=== PATIENT | male | born 1990 | race Caucasian/White ===

== ENCOUNTER 2017-06-06 04:31 | Emergency (ER) | payer SELFPAY ==
[~2017-06-06] VITALS: Ht 190.5 cm; Wt 72.6 kg
[2017-06-06] MEDS ORDERED: KETOROLAC 30 MG/ML VIAL IM ONE (05:30)
--- NOTE | 2017-06-06 05:32 | ED Upper Extremity ---
General Chief Complaint: Upper Extremity Stated Complaint: RT SHOULDER HURTS & STS CAN'T MOVE IT Nursing Triage Note: PT TO ED 10 W/ C/O RT SHOULDER PAIN ONSET THIS AM. REPORTS HE'S UNABLE TO MOVE HIS ARM AT THIS TIME. Nursing Sepsis Screen: No Definite Risk Source: patient Exam Limitations: intoxication History of Present Illness Date Seen by Provider: Jun 06, 2017 Time Seen by Provider: 05:20 Initial Comments Patient presents to the ER by private conveyance with a chief complaint that last night he had done quite a bit of drinking to the point of passing out and may have fell out of bed but doesn't remember any specific trauma. However he woke up this morning with some deformity and pain to movement of his right shoulder. He's never fractured or dislocated his shoulder before. He has not taken anything for the pain yet he just came straight to the ER. No fevers, chills, sweats Allergies and Home Medications Allergies Coded Allergies: No Known Drug Allergies (Unverified , 02/20/14) Patient Home Medication List Home Medication List Reviewed: Yes Constitutional: No chills, No diaphoresis, No fever EENTM: No ear discharge, No ear pain Respiratory: No cough, No short of breath Cardiovascular: No chest pain, No Hx of Intervention, No palpitations Gastrointestinal: No abdominal pain, No constipation, No diarrhea, No nausea, No vomiting Genitourinary: No discharge, No dysuria Past Uvbdmar-Wftrgw-Yxgepa Hx Patient Social History Alcohol Use: Occasionally Uses Recreational Drug Use: No Smoking Status: Current Everyday Smoker Type Used: Cigarettes Recent Foreign Travel: No Contact w/Someone Who Travel: No Recent Infectious Disease Expo: No Recent Hopitalizations: No Physical Abuse: No Sexual Abuse: No Mistreated: No Fear: No Immunizations Up To Date Tetanus Booster (TDap): Unknown Seasonal Allergies Seasonal Allergies: No Surgeries History of Surgeries: No Psychosocial Suicide Risk Score: 0 Physical Exam Vital Signs Vital Signs - First Documented 06/06/17 05:12 Temp 97.8 Pulse 109 Resp 20 B/P (MAP) 129/95 (106) Pulse Ox 99 O2 Delivery Room Air Capillary Refill : Less Than 3 Seconds General Appearance: WD/WN, mild distress HEENT: PERRL/EOMI, pharynx normal Neck: non-tender, normal inspection Cardiovascular: normal peripheral pulses, regular rate, rhythm, other ( bilateral radial pulses 2 out of 4.) Respiratory: chest non-tender, lungs clear, no respiratory distress, no accessory muscle use Gastrointestinal: non tender, soft Shoulder: asymmetry (right), limited ROM (Limited abduction and extension), pain Elbow/Forearm: normal inspection, non-tender, no evidence of injury, normal ROM , Bilateral Wrist: Yes normal inspection, Yes non-tender Hand: normal inspection, non-tender, no evidence of injury, normal ROM Neurologic/Tendon: normal sensation, normal motor functions, normal tendon functions, responds to pain, no evidence tendon injury Neurologic/Psychiatric: no motor/sensory deficits, alert, normal mood/affect, oriented x 3 Skin: normal color, warm/dry Progress/Results/Core Measures Results/Orders My Orders Orders - JOSETTE KUMARI Ketorolac Injection (Toradol Injection) (06/06/17 05:30) Shoulder, Right, 3 Views (06/06/17 05:25) Medications Given in ED Current Medications Medications Dose Ordered Sig/Bashir Route Start Time Stop Time Status Last Admin Dose Admin Ketorolac Tromethamine 30 mg ONCE ONCE IM 06/06/17 05:30 06/06/17 05:31 06/06/17 05:31 30 MG Vital Signs/I&O Vital Sign - Last 12Hours 06/06/17 05:12 Temp 97.8 Pulse 109 Resp 20 B/P (MAP) 129/95 (106) Pulse Ox 99 O2 Delivery Room Air Blood Pressure Mean: 106 Progress Note : Time: 05:31 Progress Note Suspect dislocation versus fracture. Ketorolac for pain. Diagnostic Imaging Diagonstic Imaging: Xray Plain Films/CT/US/NM/MRI: other Comments Lateral one third of the right clavicle has a nondisplaced fracture. No comminuted and closed. Reviewed: Reviewed by Me Departure Impression Impression: Primary Impression: Closed right clavicular fracture Qualified Codes: S42.034A - Nondisplaced fracture of lateral end of right clavicle, initial encounter for closed fracture Disposition: HOME, SELF-CARE Condition: Stable Departure-Patient Inst. Decision time for Depature: 06:19 Referrals: NO,LOCAL PHYSICIAN (PCP) Primary Care Physician FRAN MAYER MD Patient Instructions: Clavicle Fracture (DC) Add. Discharge Instructions: This morning please call Drs. Mayer at [phone] to make an appointment to follow up in about 1 week. Wear the sling as directed. Apply ice for 20 minutes every 2 hours as needed for swelling or pain. Use ibuprofen 800 mg every 8 hours or Tylenol 1000 mg every 8 hours as needed for pain. All discharge instructions reviewed with patient and/or family. Voiced understanding. Work/School Note: Work Release Form Date Seen in the Emergency Department: Jun 06, 2017 Return to Work: Jun 07, 2017 Restrictions: Need Release from Doctor Other Restrictions Listed Below: Use left hand and keep right hand in a sling for 3 weeks. Copy Copies To 1: FRAN MAYER MD, TITUS J Jun 06, 2017 05:32
--- OUTSIDE RECORDS SUMMARY | 2017-06-06 05:56 | XMS REPORT | Continuity of Care Document ---
Author Author [facility] Organization [facility] Address Unknown Phone Unavailable Allergies Active Description Code Type Severity Reaction Onset Reported/Identified Relationship to Patient Clinical Status Yes No Known Drug Allergies [id number] Drug Allergy Unknown N/A 02/20/2014 Medications There is no data. Problems There is no data. Procedures There is no data. Results There is no data. Encounters ACCT No. Visit Date/Time Discharge Status Pt. Type Provider Facility Loc./Unit Complaint [id number] 02/20/2014 08:02:00 02/20/2014 10:23:00 DIS Emergency KASANDRA SEGURA, BETHANY Ambrosio [facility] ER
[2017-06-06 06:33] VITALS: BP 0/0
--- NOTE | 2017-06-06 07:12 | Diagnostic Imaging Report ---
INDICATION: Pain. COMPARISON: None. FINDINGS: Three views of the right shoulder are obtained. There is a nondisplaced fracture through the distal clavicle. Alignment of the acromioclavicular joint appears unremarkable. No additional fracture, malalignment or osseous destructive process is seen. Small benign bilateral proximal right humerus. IMPRESSION: Nondisplaced distal clavicle fracture. Dictated by: Dictated on workstation # [id number]
== END 2017-06-06 06:34 | disposition home or self-care (01) ==
LOC: EDUNIT# 04:31 → ER 04:36
DX: S42.001A Fracture of unspecified part of right clavicle, initial encounter for closed fracture (principal); F17.210 Nicotine dependence, cigarettes, uncomplicated; W06.XXXA Fall from bed, initial encounter
CPT/HCPCS: 73030; 96372